=== PATIENT | female | born 1980 | race Caucasian/White ===

== ENCOUNTER 2020-12-04 08:00 | Emergency (ER) | payer OTHER ==
[~2020-12-04 08:00] MED LIST: NORCO 5-325 TA1 EACH PO
[2020-12-04 08:45] LABS: BILIRUBIN NEGATIVE (NEGATIVE); BLOOD TRACE-INTACT Ery/uL (NEGATIVE); CLARITY CLEAR (CLEAR); COLOR YELLOW (YELLOW); GLUCOSE (U) NORMAL (NORMAL); LEUKOCYTES NEGATIVE Leu/uL (NEGATIVE); NITRITE NEGATIVE (NEGATIVE); PROTEIN NEGATIVE (NEGATIVE); SPECIFIC GRAVITY >=1.030 (1.001-1.030); UROBILINOGEN 0.2 mg/dL (0.2-1.0); pH 5.5 (5.0-9.0)
[2020-12-04] MEDS ORDERED: CEPHALEXIN500 MG PO (10:04)
[2020-12-04] MEDS ORDERED: BACTRIM DS TAB1 EACH PO (10:04)
== END 2020-12-04 10:13 | disposition home or self-care (01) ==
LOC: FER 08:00
PROVIDERS: Emergency Medicine
DX: N76.4 Abscess of vulva (principal); F17.210 Nicotine dependence, cigarettes, uncomplicated; Z88.5 Allergy status to narcotic agent
CPT/HCPCS: 81001; 87070; 87205